=== PATIENT | male | born 1950 | race Caucasian/White ===

== ENCOUNTER 2024-10-25 06:53 | Outpatient (RCR) | payer OTHER, SELFPAY | END 2024-10-25 23:59 | disposition home or self-care (01) | LOC: ROT 06:53 | PROVIDERS: ATTENDING PHYSICIAN Nurse Practitioner; FAMILY PHYSICIAN Internal Medicine | DX: G20.A1 Parkinson's disease without dyskinesia, without mention of fluctuations (principal); R41.844 Frontal lobe and executive function deficit; Z73.6 Limitation of activities due to disability; R26.89 Other abnormalities of gait and mobility | CPT/HCPCS: 96125; 97163; 97167; 97530; 97537 ==

== ENCOUNTER 2024-12-22 09:37 | Outpatient (RCR) | payer OTHER, SELFPAY | END 2024-12-22 23:59 | disposition home or self-care (01) | LOC: ROT 09:37 | PROVIDERS: ATTENDING PHYSICIAN Nurse Practitioner; FAMILY PHYSICIAN Internal Medicine | DX: G20.A1 Parkinson's disease without dyskinesia, without mention of fluctuations (principal); R41.844 Frontal lobe and executive function deficit; Z73.6 Limitation of activities due to disability; R26.89 Other abnormalities of gait and mobility; R41.841 Cognitive communication deficit; M62.81 Muscle weakness (generalized) | CPT/HCPCS: 97110; 97112; 97129; 97130; 97530; 97535 ==

== ENCOUNTER 2025-01-12 09:41 | Outpatient (RCR) | payer OTHER, SELFPAY | END 2025-01-12 23:59 | disposition home or self-care (01) | LOC: ROT 09:41 | PROVIDERS: ATTENDING PHYSICIAN Nurse Practitioner; FAMILY PHYSICIAN Internal Medicine | DX: G20.A1 Parkinson's disease without dyskinesia, without mention of fluctuations (principal); R41.844 Frontal lobe and executive function deficit; Z73.6 Limitation of activities due to disability; R41.841 Cognitive communication deficit; M62.81 Muscle weakness (generalized); R26.89 Other abnormalities of gait and mobility | CPT/HCPCS: 97110; 97112; 97129; 97130; 97530; 97535; 97537 ==

== ENCOUNTER 2025-02-21 10:18 | Outpatient (RCR) | payer OTHER, SELFPAY | END 2025-02-21 23:59 | disposition home or self-care (01) | LOC: ROT 10:18 | PROVIDERS: ATTENDING PHYSICIAN Nurse Practitioner; FAMILY PHYSICIAN Internal Medicine | DX: G20.A1 Parkinson's disease without dyskinesia, without mention of fluctuations (principal); R41.844 Frontal lobe and executive function deficit; Z73.6 Limitation of activities due to disability; R41.841 Cognitive communication deficit; M62.81 Muscle weakness (generalized); R26.2 Difficulty in walking, not elsewhere classified; R26.89 Other abnormalities of gait and mobility | CPT/HCPCS: 97110; 97112; 97129; 97130; 97530; 97535 ==

== ENCOUNTER 2025-03-16 07:01 | Outpatient (RCR) | payer OTHER, SELFPAY | END 2025-03-16 23:59 | disposition home or self-care (01) | LOC: ROT 07:01 | PROVIDERS: ATTENDING PHYSICIAN Nurse Practitioner; FAMILY PHYSICIAN Internal Medicine | DX: G20.A1 Parkinson's disease without dyskinesia, without mention of fluctuations (principal); R41.844 Frontal lobe and executive function deficit; Z73.6 Limitation of activities due to disability; R41.841 Cognitive communication deficit; M62.81 Muscle weakness (generalized); R26.89 Other abnormalities of gait and mobility; R26.2 Difficulty in walking, not elsewhere classified | CPT/HCPCS: 97129; 97130; 97530 ==

== ENCOUNTER 2025-05-03 09:34 | Outpatient (RCR) | payer OTHER, SELFPAY | END 2025-05-03 23:59 | disposition home or self-care (01) | LOC: ROT 09:34 | PROVIDERS: ATTENDING PHYSICIAN Nurse Practitioner; FAMILY PHYSICIAN Internal Medicine | DX: G20.A1 Parkinson's disease without dyskinesia, without mention of fluctuations (principal); R41.844 Frontal lobe and executive function deficit; Z73.6 Limitation of activities due to disability; R41.841 Cognitive communication deficit; M62.81 Muscle weakness (generalized); R26.89 Other abnormalities of gait and mobility; R26.2 Difficulty in walking, not elsewhere classified | CPT/HCPCS: 97110; 97129; 97130; 97535 ==

== ENCOUNTER 2025-06-07 11:08 | Outpatient (RCR) | payer OTHER, SELFPAY | END 2025-06-07 23:59 | disposition home or self-care (01) | LOC: ROT 11:08 | PROVIDERS: ATTENDING PHYSICIAN Nurse Practitioner; FAMILY PHYSICIAN Internal Medicine | DX: G20.A1 Parkinson's disease without dyskinesia, without mention of fluctuations (principal); R41.844 Frontal lobe and executive function deficit; Z73.6 Limitation of activities due to disability; R41.841 Cognitive communication deficit; M62.81 Muscle weakness (generalized); R26.89 Other abnormalities of gait and mobility; R26.2 Difficulty in walking, not elsewhere classified | CPT/HCPCS: 97129; 97130 ==

== ENCOUNTER 2025-07-19 09:42 | Outpatient (RCR) | payer OTHER, SELFPAY | END 2025-07-19 23:59 | disposition home or self-care (01) | LOC: ROT 09:42 | PROVIDERS: ATTENDING PHYSICIAN Nurse Practitioner; FAMILY PHYSICIAN Internal Medicine | DX: G20.A1 Parkinson's disease without dyskinesia, without mention of fluctuations (principal); R41.844 Frontal lobe and executive function deficit; Z73.6 Limitation of activities due to disability; R41.841 Cognitive communication deficit; M62.81 Muscle weakness (generalized); R26.89 Other abnormalities of gait and mobility; R26.2 Difficulty in walking, not elsewhere classified | CPT/HCPCS: 97129; 97130 ==

== ENCOUNTER 2025-07-27 13:35 | Outpatient (RCR) | payer OTHER, SELFPAY | END 2025-07-27 23:59 | disposition home or self-care (01) | LOC: RST 13:35 | PROVIDERS: ATTENDING PHYSICIAN Nurse Practitioner | DX: G20.A1 Parkinson's disease without dyskinesia, without mention of fluctuations (principal) ==

== ENCOUNTER 2025-08-08 10:30 | Emergency (ER) | payer OTHER, SELFPAY ==
[2025-08-08] VITALS (8 sets, daily range): BP systolic 71–171; BP diastolic 50–92; PULSE 65–73; BMI 24.2
--- NOTE | 2025-08-08 11:23 | ED.GENMED ---
History of Present Illness
General
Chief Complaint: Fainting Sensation
Source: patient, spouse and family
Exam Limitations: none
Time Seen by Provider: 08/08/25 11:23
Nursing documentation reviewed up to this point in time: agreed with
History of Present Illness
History of Present Illness:
74-year-old male with history of Parkinson's, orthostatic hypotension who presents to the emergency department for evaluation following near syncopal event this morning. Patient's states that earlier this morning he stood up from the toilet
and became very lightheaded and 'clammy '. He had to hold onto the sink as he felt as if he was going to pass out. Fortunately�she did not lose consciousness. His daughter then reports 2 additional episodes of near syncope as he was walking to
the car to come to the emergency department.
Patient denies any preceding chest pain or shortness of breath. No double vision or loss of vision. No severe headache or numbness/tingling in extremities.
Of note�patient does have a history of orthostatic hypotension and very labile blood pressures over the past few weeks. He does take midodrine 3 times a day however his primary did stop this medication last week. Patient also started experiencing
urinary symptoms last Friday including urgency and frequency and was started on a course of Bactrim by his primary care provider last Friday. He is currently on day 4 of this medication
Patient's family feels that he has been increasingly fatigued and unsteady since last week. He reports experiencing hallucinations more frequently. No recent head trauma.
Patient does not take any oral anticoagulation. He has a history of Parkinson's
Review of Systems
Review of Systems
Allergies reviewed?: Yes
All Other Systems: ROS reviewed and negative except as documented in HPI and ROS
Phy Exam
Physical Exam
Physical Exam:
Vitals: Patient's vital signs are stable. Afebrile
General: Patient is well appearing, no acute distress
Skin: Warm and dry, no rashes or lesions
Head: Normocephalic, atraumatic
Eyes: Sclera nonicteric. Pupils equal round and reactive to light bilaterally.
Throat: Protecting airway
Neck: Normal ROM, no cervical spine tenderness, no meningismus
Cardiac: Regular rate and rhythm, no murmurs.
Pulm: Normal respiratory effort, no wheezes, rales, rhonchi heard on exam
Abdomen: Abdomen soft and nontender
Extremities: No evidence of cyanosis or edema. Strength 5/5 in bilateral upper and lower extremities. Sensation intact
Neuro: AAOx3. Strength and sensation intact. No focal neurologic deficits.
Psychiatric: Normal affect.
Course
Orders/Labs/Results
Orders:
Orders
08/08/25 10:49
Electrocardiogram (*1) Urgent
Reason for Study: Chest Pain
EKG- Treatment ONCE
08/08/25 11:41
Orthostatic VS- Treatment ONCE
0.9% Sodium Chloride 500 ml [Nss] 500 ml IV BOLUS
08/08/25 11:42
CT Head W/o Iv Contrast Urgent
Comment:
Reason For Exam: AMS
08/08/25 11:49
Complete Blood Count/With Diff Urgent
Comprehensive Metabolic Panel Urgent
Troponin I Urgent
08/08/25 11:58
Urinalysis Reflex To Culture Urgent
Date Specimen was Collected: 08/08/25
Time Specimen was Collected: 11:56
Urine Microscopic Reflex Cult Urgent
08/08/25 13:03
0.9% Sodium Chloride 500 ml [Nss] 500 ml IV BOLUS
Abnormal Lab Results
08/08/25 08/08/25
11:49 11:58
RBC 4.59 L 10^6/uL
(4.70-6.10)
Absolute Lymphs (auto) 0.5 L 10^3/uL
(1.2-3.4)
Absolute Monos (auto) 0.8 H 10^3/uL
(0.1-0.6)
Lymphocytes % 9.9 L %
(20.5-51.1)
Monocytes % 14.7 H %
(1.7-9.3)
Glucose 115 H mg/dl
(70-99)
Ur Occult Blood Reflex 1+ A
(Negative)
Urine Bacteria (Reflex) Few A
(Negative)
Urine Albumin (Reflex) 1+ A
(Neg - Trace)
08/08/25 11:49
08/08/25 11:49
Vital Signs
Initial and Last Documented VS:
Initial Vital Signs
Temp Pulse Resp BP Pulse Ox
97.7 F 74 16 108/67 99
08/08/25 10:39 08/08/25 10:39 08/08/25 10:39 08/08/25 10:39 08/08/25 10:39
Last Documented Vital Signs
Temp Pulse Resp BP Pulse Ox
97.7 F 78 20 151/86 97
08/08/25 10:39 08/08/25 16:01 08/08/25 16:01 08/08/25 16:01 08/08/25 15:00
MDM/Problems Addressed
Differential Diagnosis Includes:
Not limited to: UTI, prostatitis, acute dehydration, orthostatic hypotension, vasovagal near syncope, progression of Parkinson's, etc.
MDM/Problems Addressed:
74-year-old male with history orthostatic hypotension, Parkinson's presenting after near syncopal event. No associated head strike or injury sustained. Patient family report recent labile blood pressures and discontinuation of prescribed midodrine
due to episodes of hypertension. He also is currently on Bactrim for suspected UTI however no fever, abdominal pain, vomiting, weakness. Patient has stable vital signs on arrival and is afebrile. Physical exam as above.
Differential broad. Symptoms seem most consistent with likely orthostatic hypotension however possible component of vasovagal near syncope. Symptoms may be secondary to dehydration versus progression of Parkinson's. Lower suspicion for cardiac
syncope. Will check basic labs, head CT. Will obtain orthostatic vital signs. Will check urinalysis given history of recent UTI. Will give IV fluids
Update: Labs without clinically significant abnormalities. Troponin negative. UA does not appear infected. Patient with positive orthostatic vital signs initially with blood pressure dropped to 70/50 with standing however he states he remained
asymptomatic. Will continue to run IV fluids and repeat orthostatic vital signs after liter. CT head pending
Update: CT head without acute findings. While patient did have persistent orthostasis following IV fluids�blood pressure significantly improved with standing blood pressure of 107/70. I did contact patient's primary care physician who referred him
to the emergency department, Dr. Prabhakar and reviewed labs/findings in ED. No acute findings in ED and patient remained stable. Patient's PCP states that he will continue to monitor patient very closely at home and feels comfortable discharge
home as this is his baseline orthostatic blood pressure. He will consider addition of midodrine again to medications.
Patient up and ambulating around department with rollator and is at his baseline. He and his family feel comfortable with discharge home and close primary care follow-up. Advised to continue medications as prescribed and stay very well-hydrated.
Very strict turn precautions discussed.
Chronic conditions affecting care:
Orthostatic hypotension, Parkinson
Acute Exacerbation and/or Progression of Chronic Illness:
Acute orthostatic hypotension
*Radiology
Radiology exam reviewed: radiology read reviewed
*Pulse Oximetry
SaO2: 99
Oxygen Mode of Delivery: Room air
Patient hypoxic: no
*EKG
Interpreted by ED Provider?: Yes
EKG Intrepretation Date: 08/08/25
Interpretation: normal
Comparison EKG: no comparison EKG present
Heart Rate: 64
Rate: normal
Rhythm: sinus and sinus arrhythmia
[place]: normal axis
Interval: normal interval
QRS Pattern: normal QRS
Ischemia: no ischemia
*Sfdc Consultant Interpretation
Rate: Sfdc Consultant- N/A
*Critical Care Note
Total Time (30-74mins, 75-104mins- exclusive of procedures): Not Applicable
Patient Management
Discussion with other providers: PCP (Case discussed with patient's primary care physician)
ED Attending Note
-
Portions of this chart may have been created with voice recognition software.� Occasional wrong word or��sound alike� substitutions may have occurred due to the inherent limitations of voice recognition software.
Discharge Plan
Departure
Patient Disposition: Home (Routine Discharge)
Date of Disposition: 08/08/25
Time of Disposition: 16:06
Patient with high blood pressure during this ER visit?: Yes
Condition: Good
Discharge Problem:
Near syncope
Instructions: Orthostatic hypotension, Near Fainting (DC), BLOOD PRESSURE
Prescriptions:
No Action
cetirizine [Aller-Homa] 10 mg Tablet
10 mg PO DAILY
atorvastatin 10 mg Tablet
10 mg PO HS
sulfamethoxazole-trimethoprim [Bactrim DS] 800-160 mg Tablet
1 tab PO BID
dexmethylphenidate 10 mg Tablet
10 mg PO BID
famotidine [Pepcid AC] 20 mg Tablet
20 mg PO BID
carbidopa-levodopa 25-100 mg Tablet
1 tab PO TID
midodrine 10 mg Tablet
10 mg PO TID
Patient Comments:
on hold
bupropion HCl 300 mg Tablet Extended Release 24 Hr
300 mg PO DAILY
bupropion HCl 150 mg Tablet Extended Release 24 Hr
150 mg PO DAILY
alfuzosin 10 mg Tablet Extended Release 24 Hr
10 mg PO HS
tadalafil 5 mg Tablet
5 mg PO DAILY
aspirin 81 mg Capsule
81 mg PO DAILY
allopurinol
2 tab PO DAILY
Referrals:
Earl Melgar MD [Family Provider, Internal Medicine] - Follow up in 2-3 days
Activity Restrictions/Additional Instructions:
RETURN TO THE EMERGENCY DEPARTMENT ANY FEVERS, CHEST PAIN, SHORTNESS OF BREATH, PERSISTENT LIGHTHEADEDNESS/DIZZINESS OR EPISODES OF FAINTING, ABDOMINAL PAIN, WORSENING IN CURRENT SYMPTOMS, CHANGES MENTAL STATUS OR ANY OTHER CONCERNS
- As discussed�your lab work in the emergency department showed no acute abnormalities. Your urine does not appear infected. Your head CT showed no acute findings. You were given a liter of IV fluids.
- I did discuss with your primary care doctor, please continue to follow-up with him for further management of your blood pressure. You may require medication adjustments.
- Please stay very well-hydrated and move slowly from sitting to standing.
Monitor your symptoms closely and return to the emergency department with any acute worsening/new symptoms or any other concerns
Interventions
Interventions:
*Risk Screen - Suicide Last Done: 08/08/25 10:39
*General Assessment Last Done: 08/08/25 11:12
*Neglect/Abuse Screening Last Done: 08/08/25 11:12
*ED- Fall Risk Assessment Last Done: 08/08/25 11:12
*ED COVID-19 Vaccine History Last Done: 08/08/25 11:12
*Nursing Disposition Last Done: 08/08/25 16:35
ED- Cardiac Assessment Last Done: 08/08/25 11:42
ED- Neurological Assessment Last Done: 08/08/25 11:42
Discharge Date and Time
Discharge Date/Time: 08/08/25 16:36
Print Language: GREEK
[2025-08-08 12:14] LABS: Urine Character Clear (Clear)
[2025-08-08 12:14] LABS: Hematocrit 40.8 % (39.0-52.0); Hemoglobin 14.2 g/dL (13.0-18.0); Mean Corp Hgb Conc. 34.8 g/dL (33.0-37.0); Mean Corpuscular Volume 88.9 fL (80.0-94.0); Nucleated Red Blood Cells % 0 % (-); Platelet Count 141 10^3/uL (130-400); Red Cell Dist. Width 13.0 % (11.5-14.5)
[2025-08-08] MEDS: NSS 500 IV ×2 (12:15→13:16)
[2025-08-08 12:24] LABS: ALT (SGPT) 13 U/L (0-50); AST (SGOT) 24 U/L (17-59); Albumin 4.2 g/dl (3.5-5.0); Alkaline Phosphatase 55 U/L (38-126); Blood Urea Nitrogen 17 mg/dl (9-20); Calcium 9.6 mg/dl (8.4-10.2); Carbon Dioxide 25 mmol/L (22-30); Chloride 102 mmol/L (98-107); Estimated Creatinine Clearance 69 ml/min; Glucose 115 mg/dl (70-99); Potassium 4.2 mmol/L (3.5-5.1); Sodium 135 mmol/L (135-145); Total Protein 6.7 g/dl (6.3-8.2); eGFR > 60.00
[2025-08-08 12:35] LABS: Troponin I < 0.012 ng/ml
[2025-08-08 12:39] LABS: Urine Squamous Cell 16-20 /LPF (Few); Urine Urothelial Cell 0-2 /LPF (FEW)
[2025-08-08 12:41] LABS: Urine Red Blood Cell 0-2 /HPF (0-2)
== END 2025-08-08 16:36 | disposition home or self-care (01) ==
LOC: EMR 10:30
PROVIDERS: Physician Assistant; EMERGENCY PHYSICIAN Emergency Medicine; FAMILY PHYSICIAN Internal Medicine
DX: R55 Syncope and collapse (principal); G20.A1 Parkinson's disease without dyskinesia, without mention of fluctuations; I10 Essential (primary) hypertension; Z79.2 Long term (current) use of antibiotics; Z87.440 Personal history of urinary (tract) infections
CPT/HCPCS: 99284; 96360; 96361; 70450; 80053; 81003; 81015; 84484; 85025; 93005

== ENCOUNTER → 2025-08-16 14:58 | Outpatient (REF) | payer OTHER, SELFPAY | LOC: RAD 14:58 | PROVIDERS: ATTENDING PHYSICIAN Internal Medicine | DX: K59.00 Constipation, unspecified (principal) | CPT/HCPCS: 74019 ==

== ENCOUNTER 2025-09-21 12:36 | Outpatient (RCR) | payer OTHER, SELFPAY | END 2025-09-21 23:59 | disposition home or self-care (01) | LOC: RPT 12:36 | PROVIDERS: ATTENDING PHYSICIAN Nurse Practitioner; FAMILY PHYSICIAN Internal Medicine | DX: G20.A1 Parkinson's disease without dyskinesia, without mention of fluctuations (principal); R41.844 Frontal lobe and executive function deficit; Z73.6 Limitation of activities due to disability; R41.841 Cognitive communication deficit; M62.81 Muscle weakness (generalized); R26.89 Other abnormalities of gait and mobility; R26.2 Difficulty in walking, not elsewhere classified | CPT/HCPCS: 97129; 97130; 97530 ==

== ENCOUNTER 2025-10-14 08:12 | Outpatient (RCR) | payer OTHER, SELFPAY | END 2025-10-14 23:59 | disposition home or self-care (01) | LOC: RPT 08:12 | PROVIDERS: ATTENDING PHYSICIAN Nurse Practitioner; FAMILY PHYSICIAN Internal Medicine | DX: G20.A1 Parkinson's disease without dyskinesia, without mention of fluctuations (principal); R41.844 Frontal lobe and executive function deficit; Z73.6 Limitation of activities due to disability; R41.841 Cognitive communication deficit; M62.81 Muscle weakness (generalized); R26.89 Other abnormalities of gait and mobility; R26.2 Difficulty in walking, not elsewhere classified | CPT/HCPCS: 97129; 97130; 97530; 97535 ==